=== PATIENT | female | born 1985 | race Caucasian/White ===

== ENCOUNTER 2019-06-21 09:47 | Emergency (ER) | payer MEDICAID ==
[~2019-06-21] VITALS: Ht 157.5 cm; Wt 51.7 kg
[2019-06-21 10:00] VITALS: Ht 157.5 cm; Wt 51.7 kg
[2019-06-21 10:54] LABS: PLATELET COUNT 335 x10^3mcL (130-400); RED CELL DISTRIBUTION WIDTH 13.4 % (11.5-14.5)
[2019-06-21 11:16] LABS: ALBUMIN 3.7 g/dL (3.4-5.0); ALKALINE PHOSPHATASE 95 U/L (46-116); ALT/SGPT 15 U/L (14-59); AST/SGOT 9 U/L (15-37); BILIRUBIN TOTAL 0.27 mg/dL (0.20-1.00); CALCIUM 8.9 mg/dL (8.5-10.1); CARBON DIOXIDE 29.4 mmol/L (21-32); CHLORIDE SERUM 105 mmol/L (98-107); CREATININE SERUM 0.5 mg/dL (0.6-1.0); GFR1 > 60 mL/min; GLUCOSE SERUM 64 mg/dL (74-106); POTASSIUM SERUM 3.7 mmol/L (3.5-5.1); SODIUM SERUM 143 mmol/L (136-145); TOTAL PROTEIN, SERUM 7.6 g/dL (6.4-8.2)
[2019-06-21 14:30] VITALS: BP 95/58
== END 2019-06-21 14:35 | disposition home or self-care (01) ==
LOC: ED 09:47
PROVIDERS: Emergency Medicine
DX: N61.0 Mastitis without abscess (principal)
CPT/HCPCS: 36415; 76641; Q0092